=== PATIENT | male | born 1990 | race Caucasian/White ===

== ENCOUNTER → 2023-01-21 | Outpatient (CLI) | payer OTHER, SELFPAY ==
--- NOTE | 2023-01-21 14:49 | CT_ITS ---
STUDY: CT MAXILLOFACIAL SINUSES REASON FOR EXAM: Male, 32 years old. CHRONIC SINUSITIS RADIATION DOSAGE (If Supplied By Facility): CTDIvol = ( 33.06 ) mGy, DLP = ( 759.47 ) mGycm TECHNIQUE: The patient was scanned in a multi detector CT scanner. High resolution axial imaging was performed without the administration of intravenous contrast material. Sagittal and coronal images were reconstructed. Individualized dose optimization techniques were used for this CT. COMPARISON: None. FINDINGS: FRONTAL SINUSES: Normal aeration, without mucosal inflammatory disease. ETHMOIDAL SINUSES: Mild degree of mucosal thickening of the ethmoid sinuses. MAXILLARY SINUSES: Nodular mucosal thickening of the maxillary sinuses bilaterally. SPHENOIDAL SINUSES: Normal aeration, without mucosal inflammatory disease. There is patency of the bilateral maxillary infundibuli with normal uncinate processes, ethmoid bullae, and hiatus semilunaris. Normal bilateral middle turbinates. Normal bilateral inferior turbinates. Minimal nasal septal deviation towards the right side of the There is patency of the bilateral nasal airways. The visualized osseous structures are normal. The visualized bilateral orbital contents are normal. CT/Sinus/Facial Bone IMPRESSION: Nodular mucosal thickening of the maxillary sinuses bilaterally. Mild degree of mucosal thickening of the ethmoid sinuses. Electronically Signed: Kenan Almeida MD at 15:18 EDT ,
== END | disposition home or self-care (01) ==
LOC: CT 14:48
PROVIDERS: Referring Provider Otolaryngology; Visit Provider Otolaryngology
DX: J32.8 Other chronic sinusitis (principal)
CPT/HCPCS: 70486

== ENCOUNTER 2023-03-04 21:47 | Emergency (ER) | payer OTHER, SELFPAY ==
[2023-03-04 21:49] VITALS: BP 174/100; PULSE 82; RESP 16; TEMP 36; O2SAT 98; BMI 30.7
--- NOTE | 2023-03-04 22:28 | EX.ED.VIS.HA ---
HPI History of Present Illness Chief Complaint: Headache Narrative Narrative: 32-year-old male with history of migraines presenting with headache. He states he has photophobia and phonophobia. He has nausea. He states he has only Excedrin as an as abortive medicine. He also has taken Tylenol and ibuprofen. Onset of this headache was about 11 today. No fevers or chills. No neck pain or stiffness. He states he went to the fire station and got some IV fluids but is still not better. Patient has had imaging of his head the past. Nonacute onset headache. Is typical of his migraine headaches PFSH PFSH Medical History no medical history Allergy/AdvReac Type Severity Reaction Status Date / Time No Known Allergies Allergy Verified 03/04/23 21:50 Social History Smoking Status: Never smoker ROS ROS ED Constitutional Constitutional ED: Denies chills, fever(s) or sweats Eyes Eyes: Reports other Details: Light sensitivity ; Denies blurry vision or change in vision ENT ENT ED: Reports other Details: Sound sensitivity ; Denies ear pain or sore throat Cardiovascular Cardiovascular: Denies chest pain, palpitations or racing heartbeat Respiratory/Chest Respiratory/Chest: Denies cough, dyspnea or sputum Gastrointestinal Gastrointestinal: Denies abdominal pain, constipation, diarrhea, nausea or vomiting Genitourinary Genitourinary ED: Denies dysuria, hematuria or urinary frequency Musculoskeletal Musculoskeletal: Denies arthralgias, myalgias or neck pain Integumentary Denies abscess, Abrasions or rash Neurologic Neurologic: Reports headache(s); Denies paresthesias or weakness Psychiatric Psychiatric: Denies anxiety, depression, suicidal ideation or suicidal thoughts Endocrine Endocrinology: Denies polydipsia or polyuria EXAM Physical Exam Const Vital Signs: 03/04/23 21:49 Temperature 96.8 F L Temperature Source Temporal Pulse Rate 82 Respiratory Rate 16 Blood Pressure 174/100 H Blood Pressure Mean 124 Pulse Ox 98 Positive well nourished General Appearance ED: NAD; Negative for pallor HEENT Reports normocephalic atraumatic Eyes PERRL and EOMs intact bilaterally Resp normal respiratory effort Cardio regular rhythm Neuro oriented x3, CN's II-XII intact bilaterally and no sensory deficits noted Sensorium / Orientation: awake and alert Motor Exam: strength 5/5 throughout Psych mental status grossly normal Skin General Skin Exam: Negative for jaundice or pallor MDM MDM MDM Narrative Medical decision making narrative: Patient presenting with migraine headache. He has been unable to break it today. Has been to the fire house and had fluids. He is complaining of nausea, light sensitivity, sound sensitivity. He states this is typical of his migraine. He is treated with Reglan, Benadryl, Toradol. He is given a liter of normal saline. Will reevaluate. Reevaluation at 11:20 PM the patient is doing well. He is resting comfortably. He feels like he can go home at this point. Patient will be discharged home in stable condition. Impression: 1. Migraine 2. Nausea Lab Data Attestation: I reviewed the patient's lab results. Discharge Plan Triage Chief Complaint: Headache ED Provider: Cooper Morataya Dx/Rx/DC Orders Instructions: ED, Migraine (Classical) Primary Care Provider: Paul Campos Referrals: Paul Campos, [Primary Care Provider] - Disposition Disposition: Home, Self Care
[2023-03-04] MEDS: 0.9% Normal Saline 1,000 ML 999 ML IV (22:58)
[2023-03-04] MEDS: Metoclopramide 10 MG/2 ML Vial IV (22:59)
[2023-03-04] MEDS: DiphenhydrAMINE 50 MG/ML Syringe 25 MG IV (22:59)
[2023-03-04] MEDS: Ketorolac 15 MG/ML Vial IV (22:59)
[2023-03-04 23:49] VITALS: BP 142/84; PULSE 84; RESP 16; O2SAT 66
== END 2023-03-04 23:54 | disposition home or self-care (01) ==
PROVIDERS: Emergency Provider Student in an Organized Health Care Education/Training Program; PCP Family Medicine; Visit Provider Student in an Organized Health Care Education/Training Program
DX: G43.909 Migraine, unspecified, not intractable, without status migrainosus (principal); R11.0 Nausea
CPT/HCPCS: 96361; 96374; 96375; 99282; J7030; A4216